=== PATIENT | male | born 1980 | race African-American/Black ===

== ENCOUNTER 2019-05-24 19:22 | Emergency (ER) | payer OTHER ==
[2019-05-24 19:28] VITALS: BP 140/85; PULSE 92; RESP 18; TEMP 98
[2019-05-24] MEDS ORDERED: PROPARACAINE 0.5% OPHTH DROPS 15 ML BTL RIGHT EYE STA (19:29)
[2019-05-24] MEDS ORDERED: TOBRAMYCIN 0.3% OPHTH DROPS 5 ML BTL RIGHT EYE STA (19:29)
--- NOTE | 2019-05-24 19:32 | ED ---
Eye Problem HPI - General Chief complaint: Eye Problems Stated complaint: [facility] Eye Pain Time Seen by Provider: 05/24/19 19:28 Source: patient, RN notes reviewed Mode of arrival: ambulatory Limitations: no limitations - History of Present Illness Initial comments: 39-year-old male presents emergency Department chief complaint of left eye irritation. Patient states that he was using an air hose to blow off some stuff and states that shortly after he noticed some irritation to his left eye. Patient states that spread, irritating. Patient states he does not feel that isn't affecting his vision at this time. His tetanus is up-to-date. He states that it's red, mild tearing. - Related Data Home Medications Medication Instructions Recorded Confirmed Testosterone Cypionate 200 mg IM QMONTH 01/03/08/31/17 [Depo-Testosterone] Previous Rx's Medication Instructions Recorded Cephalexin [Keflex] 500 mg PO Q12HR #20 cap 08/31/17 Allergies Allergy/AdvReac Type Severity Reaction Status Date / Time No Known Allergies Allergy Verified 08/31/17 14:12 Review of Systems ROS Statement: Those systems with pertinent positive or pertinent negative responses have been documented in the HPI. ROS Other: All systems not noted in ROS Statement are negative. Past Medical History Past Medical History: No Reported History History of Any Multi-Drug Resistant Organisms: None Reported Past Surgical History: Hernia Repair Additional Past Surgical History / Comment(s): oral sx when 14 yr old Past Anesthesia/Blood Transfusion Reactions: No Reported Reaction Past Psychological History: No Psychological Hx Reported Smoking Status: Never smoker Past Alcohol Use History: Occasional Past Drug Use History: None Reported - Past Family History Mother Family Medical History: No Reported History General Exam Limitations: no limitations General appearance: alert, in no apparent distress Head exam: Present: atraumatic, normocephalic, normal inspection Eye exam: Present: PERRL, EOMI, conjunctival injection (Left), other (2 drops of her cane alleviated all symptoms. Fluorescein shows some uptake in the sclera no corneal abrasion). Absent: normal appearance, scleral icterus, periorbital swelling ENT exam: Present: normal exam, normal oropharynx, mucous membranes moist Neck exam: Present: normal inspection, full ROM. Absent: tenderness, meningismus, lymphadenopathy Respiratory exam: Present: normal lung sounds bilaterally. Absent: respiratory distress, wheezes, rales, rhonchi, stridor Cardiovascular Exam: Present: regular rate, normal rhythm, normal heart sounds. Absent: systolic murmur, diastolic murmur, rubs, gallop, clicks Course Vital Signs 05/24/19 19:24 Temperature 98.0 F Pulse Rate 92 Respiratory 18 Rate Blood Pressure 140/85 O2 Sat by Pulse 99 Oximetry Medical Decision Making - Medical Decision Making Patient has a scleral abrasion with no evidence of corneal abrasion. Patient was placed on Tobrex eyedrops, patient's tetanus is up-to-date. Patient follow- up with ophthalmology if no improvement. Disposition Clinical Impression: Abrasion of sclera of left eye Disposition: HOME SELF-CARE Condition: Stable Instructions (If sedation given, give patient instructions): Eye Foreign Body (ED) Additional Instructions: Please return to the Emergency Department if symptoms worsen or any other concerns. Use Tobrex eyedrops 1 drop every 4 hours for 5 days. Is patient prescribed a controlled substance at d/c from ED?: No Referrals: Po Wray MD [Primary Care Provider] - 1-2 days Neela Arvizu MD [STAFF PHYSICIAN] - 1-2 days
== END 2019-05-24 20:30 | disposition home or self-care (01) ==
LOC: EC 19:22
DX: S05.8X2A Other injuries of left eye and orbit, initial encounter (principal); X58.XXXA Exposure to other specified factors, initial encounter
CPT/HCPCS: 99283

== ENCOUNTER → 2023-07-08 | Outpatient (CLI) | payer OTHER ==
--- NOTE | 2023-07-09 07:43 | US ---
EXAMINATION TYPE: US mass soft tissue chest/back DATE OF EXAM: 07/08/2023 COMPARISON: NONE CLINICAL INDICATION: Male, 43 years old with history of R22.2 LOCALIZED SWELLING, MASS AND LUMP, TRUN K; Swelling/lump upper midline back. TECHNIQUE: Real-time linear array sonography is performed for a palpable. FINDINGS: Scanned upper back at patient's palpable area of concern/swelling. Indistinct, isoechoic prominent tissue seen measurin.3 x 4.6 x 1.9 cm. Findings could be related to a lipoma. IMPRESSION: 1. Suspected lipoma at the palpable region. If Additional workup is required, MRI could be performed.
== END | disposition home or self-care (01) ==
LOC: RADUSWWP 14:11
PROVIDERS: ATTEND Surgery Plastic and Reconstructive Surgery
DX: R22.2 Localized swelling, mass and lump, trunk (principal)

== ENCOUNTER 2023-09-12 05:41 | Day surgery (SDC) | payer OTHER ==
[2023-09-10 09:38] VITALS: BMI 45.6
[~2023-09-12 05:41] MED LIST: Pre Op ABX Message 1 EACH MISC MISCELLANE ONE
[2023-09-12] MEDS ORDERED: LIDOCAINE 1% (10MG/ML) FOR IV START INTRADERMA PRN (05:55)
[2023-09-12] MEDS ORDERED: LACTATED RINGERS 1,000 ML IV SCH (05:55)
[2023-09-12] MEDS: LACTATED RINGERS 1,000 ML IV ONE (06:05)
--- NOTE | 2023-09-12 06:29 | P.GSHP ---
History of Present Illness H&P Date: 09/12/23 CHIEF COMPLAINT: Back mass HISTORY OF PRESENT ILLNESS: The patient is a 43 year-old male with history of mass along the mid back for over 1 year, painful growth. He presents today for surgical excision. PAST MEDICAL HISTORY: Please see list. PAST SURGICAL HISTORY: Please see list. MEDICATIONS: Please see list. ALLERGIES: Please see list. SOCIAL HISTORY: Please see list. FAMILY HISTORY: No reports of Crohn disease or ulcerative colitis. REVIEW OF ORGAN SYSTEMS: CONSTITUTIONAL: No reports of fevers or chills. GI: Denies any blood in stools or constipation. PHYSICAL EXAM: VITAL SIGNS: Stable Musculoskeletal: No clubbing cyanosis or edema SKIN:Upper back lesion 8 cm GENERAL: Well developed and in no acute distress. Pleasant. HEENT: No sclera icterus. Extraocular movements grossly intact. Moist buccal mucosa. Head is atraumatic, normocephalic. Hears conversational speech. No nasal drainage. NECK: Supple without lymphadenopathy. No JV distention. CHEST: Non-labored respirations and equal bilateral excursions. CARDIOVASCULAR: Regular rate and rhythm. Palpable 2+ radial pulses. ABDOMEN: Soft. Non-tender. Nondistended. NEUROLOGIC: No focal or lateralizing signs. PSYCH: Appropriate affect. Alert and oriented to person, place and time. ASSESSMENT: 1. Upper back mass PLAN: 1. Will proceed of excision of subcutaneous tumor along the back. 2. DVT prophylaxis. 3. Antibiotic prophylaxis. 4. Time of recovery, at least one week. 5. Will need CMP, CBC, EKG in preop 6. General anesthesia advised due to size and depth of mass Past Medical History Past Medical History: No Reported History Additional Past Medical History / Comment(s): mass upper back History of Any Multi-Drug Resistant Organisms: None Reported Past Surgical History: Hernia Repair Additional Past Surgical History / Comment(s): oral sx when 14 yr old,left inguinal hernia 2014 Past Anesthesia/Blood Transfusion Reactions: No Reported Reaction Additional Past Anesthesia/Blood Transfusion Reaction / Comment(s): no hx blood transfusion Smoking Status: Never smoker - Past Family History Mother Family Medical History: No Reported History Medications and Allergies Home Medications Medication Instructions Recorded Confirmed Type No Known Home Medications 09/10/23 09/10/23 History Allergies Allergy/AdvReac Type Severity Reaction Status Date / Time No Known Allergies Allergy Verified 09/12/23 06:14
[2023-09-12] MEDS: ACETAMINOPHEN TAB 500 MG TAB PO PRN (06:36)
[2023-09-12] MEDS: HEPARIN SODIUM,PORCINE 5,000 UNIT/ML 1 ML VIAL SQ PRN (06:37)
[2023-09-12] MEDS: ONDANSETRON 4 MG/2 ML VIAL IVP PRN (06:37)
[2023-09-12] MEDS: DEXAMETHASONE SOD PHOSPHATE 4 MG/ML 1 ML VIAL IV ONE (06:37)
[2023-09-12] MEDS ORDERED: HYDROmorphone 0.5 MG/0.5 ML SYRINGE IVP PRN (07:00)
[2023-09-12] MEDS ORDERED: METOCLOPRAMIDE 5 MG/ML 2 ML VIAL IVP PRN (07:00)
[2023-09-12] MEDS ORDERED: MIDAZOLAM 2 MG/2 ML VIAL ONE (07:22)
[2023-09-12] MEDS ORDERED: KETOROLAC 15 MG/ML 1 ML VIAL ONE (07:22)
[2023-09-12] MEDS ORDERED: fentaNYL (PF) 50 MCG/ML 2 ML AMP ONE (07:22)
[2023-09-12] MEDS ORDERED: SUCCINYLCHOLINE CHLORIDE 200 MG/10 ML VIAL IV ONE (07:22)
[2023-09-12] MEDS ORDERED: PROPOFOL 10 MG/ML 20 ML VIAL IV ONE (07:22)
[2023-09-12] MEDS ORDERED: LIDOCAINE 1% INJ 10MG/ML (20 ML MDV) ONE (07:22)
[2023-09-12] MEDS ORDERED: KETAMINE HCL IN 0.9 % NACL 50 MG/5 ML SYRINGE ONE (07:22)
[2023-09-12] MEDS: ceFAZolin 3 GM in SODIUM CHLORIDE 0.9% 100 ML IVPB ONE (07:27)
[2023-09-12 07:28] LABS: Basophils % (A) 0 %; Eosinophils # (A) 0.1 k/uL (0-0.7); Eosinophils % (A) 2 %; HCT 42.7 % (39.0-53.0); HGB 13.9 gm/dL (13.0-17.5); Lymphocytes # (A) 1.7 k/uL (1.0-4.8); Lymphocytes % (A) 23 %; MCH 28.8 pg (25.0-35.0); MCHC 32.5 g/dL (31.0-37.0); MCV 88.6 fL (80.0-100.0); Mean Platelet Volume 9.1; Monocytes # (A) 0.4 k/uL (0-1.0); Monocytes % (A) 6 %; Neutrophils # (A) 4.8 k/uL (1.3-7.7); Neutrophils % (A) 67 %; Platelet Count 182 k/uL (150-450); RBC 4.82 m/uL (4.30-5.90); RDW 13.3 % (11.5-15.5); WBC 7.2 k/uL (3.8-10.6)
[2023-09-12 07:37] LABS: ALT 17 U/L (4-49); AST 19 U/L (17-59); African American GFR (CKD) >90 (>60 ml/min/1.73 sqM); Albumin 3.5 g/dL (3.5-5.0); Alkaline Phosphatase 68 U/L (38-126); Anion Gap 6 mmol/L; Blood Urea Nitrogen 17 mg/dL (9-20); Calcium 8.5 mg/dL (8.4-10.2); Carbon Dioxide 22 mmol/L (22-30); Chloride 109 mmol/L (98-107); Glucose 110 mg/dL (74-99); Non-African American GFR(CKD) >90 (>60 ml/min/1.73 sqM); Potassium 4.3 mmol/L (3.5-5.1); Sodium 137 mmol/L (137-145); Total Bilirubin 1.1 mg/dL (0.2-1.3); Total Protein 5.8 g/dL (6.3-8.2)
[2023-09-12] MEDS: LIDOCAINE 1%-EPI 1:100,000 50 ML VIAL SQ ONE ×3 (07:45→07:55)
[2023-09-12 08:46] VITALS: TEMP 96.8
--- NOTE | 2023-09-12 09:04 | P.OP ---
Date of Procedure: 09/12/23 Description of Procedure: SURGEON: ALIAD BISWAS MD SECRETARY OF STATE: None. PREOPERATIVE DIAGNOSES: 1. Midline upper back tumor 2. Morbid obesity due to excess calories, BMI 44.8 POSTOPERATIVE DIAGNOSES: 1. Deep subcutaneous midline upper back tumor, 9 x 6 cm 2. Morbid obesity due to excess calories, BMI 44.8 PROCEDURES PERFORMED: 1. Excision of deep subcutaneous midline upper back tumor, 9 x 6 cm 2. Complex closure upper back incision, 12-cm Anesthesia: GETA, local Estimated Blood Loss (ml): 10 Pathology: other (back mass) Condition: stable Disposition: same day COMPLICATIONS: None. Operative Findings: 1. Excision of deep subcutaneous fatty tumor midline upper back tumor 9 x 6 cm INDICATIONS: The patient is a 43-year-old male who presents with symptomatic upper back tumor. Benefits and risks of surgical intervention were described including bleeding, infection, seroma, pain and recurrence. Informed consent was obtained. DESCRIPTION OR PROCEDURE: In the preoperative area, the area of concern was marked with indelible marker. Patient was brought into the operating room. After general induction, he was positioned in prone position. The back was prepped and draped in a standard sterile fashion with ChloraPrep. Timeout protocol was confirmed with the surgical team regarding the patient's name, procedure to be performed including preoperative medications. DVT prophylaxis was confirmed. A field block was placed of the upper back. An transverse incision using #15 bl albert was made along the marking into the dermis and subcutaneous tissue. Electro-Bovie cautery was used to enter deep into the fascia where a fibrous fatty multilobulated tumor was removed in total of 9 x 6 cm. The tumor was deep and adherent to the upper midline abutting the spine. 0 Vicryl for the fascia and deep subcutaneous tissue were placed in interrupted fashion incorporating the fascia to close space with a complex closure. 3-0 Monocryl in a running subcuticular fashion was placed along the dermis. The skin was cleansed and Exofin tape with liquid was applied for an additional layer closure. The incision was covered with Optifoam dressing. At the end of the procedure, needle, sponge, and instrument count was verified correct by surgical elastic knitter. The patient tolerated the procedure well. Plan - Discharge Summary Discharge Rx Participant: No New Discharge Prescriptions: New Ibuprofen [Motrin] 600 mg PO Q8HR PRN #30 tab PRN Reason: Pain Acetaminophen Tab [Tylenol Tab] 1,000 mg PO Q6HR PRN #30 tablet PRN Reason: Pain Discharge Medication List Acetaminophen Tab [Tylenol Tab] 1,000 mg PO Q6HR PRN #30 tablet 09/12/23 [Rx] Ibuprofen [Motrin] 600 mg PO Q8HR PRN #30 tab 09/12/23 [Rx] Follow up Appointment(s)/Referral(s): Alida Biswas MD [STAFF PHYSICIAN] - 09/16/23 11:00 am Patient Instructions/Handouts: Excision of Skin Lesion (GEN) Activity/Diet/Wound Care/Special Instructions: DO NOT REMOVE DRESSING. SEE INSTRUCTIONS ON DRESSING May shower. No bath tub soaks for two weeks until September 25 Diet as tolerated. Use Tylenol and ibuprofen or Aleve scheduled for the next 24-48 hours for best pain relief. Use ice along incisions for today to prevent swelling. Discharge Disposition: HOME SELF-CARE
[2023-09-12 09:53] VITALS: BP 122/80; PULSE 70; RESP 20
--- NOTE | 2023-09-12 16:45 | P.PN ---
Progress Note - Text Progress Note Date: 09/12/23 Patient called at home. Pain stable. Follow-up as outpatient in the office described. Continue dressing. All questions addressed.
== END 2023-09-12 09:47 | disposition home or self-care (01) ==
LOC: OR 05:41
PROVIDERS: ATTEND Surgery Plastic and Reconstructive Surgery
DX: D17.1 Benign lipomatous neoplasm of skin and subcutaneous tissue of trunk (principal); E66.01 Morbid (severe) obesity due to excess calories; Z68.41 Body mass index [BMI] 40.0-44.9, adult
CPT/HCPCS: 88304; 80053; 85025; 21933; 13101; 13102; J2250; J0330; J1644; J1100; J0690; J2405; J2001; J3010; J1885; J2704